=== PATIENT | male | born 1980 | race Caucasian/White ===

== ENCOUNTER 2020-03-05 11:11 | Emergency (ER) | payer OTHER ==
[~2020-03-05] VITALS: Ht 180.3 cm; Wt 90.7 kg
[2020-03-05 11:43] VITALS: Ht 180.3 cm; Wt 90.7 kg
[2020-03-05 13:29] VITALS: BP 128/89
== END 2020-03-05 13:29 | disposition home or self-care (01) ==
LOC: ED 11:11
DX: S86.911A Strain of unspecified muscle(s) and tendon(s) at lower leg level, right leg, initial encounter (principal); W22.8XXA Striking against or struck by other objects, initial encounter; Y93.89 Activity, other specified; Y92.89 Other specified places as the place of occurrence of the external cause; Y99.8 Other external cause status
CPT/HCPCS: Q0092